=== PATIENT | male | born 1940 | race Caucasian/White ===

== ENCOUNTER 2017-02-25 21:02 | Emergency (ER) | payer OTHER, MEDICARE ==
[~2017-02-25 21:02] MED LIST: DONE5TAB14 PO; NEXI40CA PO; SAW160TA PO; SINE25100 PO
--- NOTE | 2017-02-25 21:12 | PD ---
HPI Chief Complaint: Fall Time Seen by Provider: 21:06 Travel History International Travel<30 days: No Contact w/Intl Traveler<30days: No Traveled to known affect area: No History of Present Illness HPI 76-year-old male presents to the emergency department by EMS transport from home where he reportedly was witnessed to have a non-syncopal slip and fall. Patient is in hospice care. Patient lives at home. Patient has history of parkinsonism Lewy body dementia with behavioral disorder non-Hodgkin's lymphoma that is not being treated and generalized weakness. Patient reportedly was started on a medication today, Ativan 0.5 mg. Patient presents with laceration to the left eyebrow bleeding controlled multiple superficial skin tears and abrasion to the left upper extremity and bilateral knees left greater than right and deformity of the left fourth digit of the left hand at the PIP. Family reportedly requested patient to be transported here to [place]. Hospice nurse reportedly did see the patient at the patient's home and bandages were applied to areas of skin tear and eyebrow laceration. reportedly wanted the patient evaluated in the emergency department because of generalized progressive weakness. [facility] Past Medical History Narrative Medical MALT-lymphoma Lewy body dementia Parkinson's disease chronic anemia, BPH, hyperlipidemia, gouty arthritis, rectal dysfunction, colonoscopy, vasectomy, EGD Autoimmune Disease: No Cancer: Yes (NONHODGKINS LYMPHOMA) Cardiovascular Problems: No High Cholesterol: Yes Chemotherapy: No Diabetes: No Diminished Hearing: No Endocrine: No GERD: Yes (TOMATO BASED FOOD) Genitourinary: Yes (BPH) Hepatitis: No Hiatal Hernia: No Immune Disorder: No Musculoskeletal: No Neurologic: Yes (PARKINSON'S) Parkinson's Disease: Yes Psychiatric: No Reproductive: No Respiratory: No Radiation Therapy: No Sickle Cell Disease: No Thyroid Disease: No Past Surgical History Abdominal Surgery: No AICD: No Cardiac Surgery: No Ear Surgery: No Endocrine Surgery: No Eye Surgery: Yes (PRECIOUS. CATARACT EXTRACT.) Genitourinary Surgery: No Gynecologic Surgery: No Joint Replacement: No Oral Surgery: No Pacemaker: No Thoracic Surgery: No Other Surgery: No Social History Alcohol Use: Yes (2-4 drinks per day) Tobacco Use: No Substance Use: No Allergies-Medications (Allergen,Severity, Reaction): Coded Allergies: No Known Allergies (Verified , 02/25/17) Reported Meds & Prescriptions Reported Meds & Active Scripts Active Reported Donepezil 10 Mg Tab 10 Mg PO HS Lorazepam 1 Mg Tab 1 Mg PO Q6H PRN Lorazepam 0.5 Mg Tab 0.5 Mg PO Q6H PRN Memantine 10 Mg Tab 10 Mg PO BID Myrbetriq (Mirabegron) 25 Mg Tab 25 Mg PO HS Polyethylene Glycol 3350 Powder (Polyethylene Glycol) 17 Gm Pow 17 Gm PO DAILY Senna-Plus (Sennosides-Docusate Sodium) 8.6-50 Mg Tab 2 Tab PO DIRECTED PRN Carbidopa-Levodopa ER 25-100 Mg Tab 1 Tab PO QID Review of Systems ROS Limitations: Poor Historian, Other: () General / Constitutional: No: Fever Cardiovascular: No: Chest Pain or Discomfort Respiratory: No: Shortness of Breath Gastrointestinal: No: Abdominal Pain Musculoskeletal: Positive: Other (deformity left ring finger), No: Pain Neurologic: Positive: Weakness Hematologic/Lymphatic: No: Lymph Node Enlargement Physical Exam Narrative GENERAL: Well-developed well-nourished male in no acute distress no respiratory distress GCS 14 SKIN: Warm and dry. HEAD: Atraumatic. Normocephalic. EYES: Pupils equal and round. No scleral icterus. No injection or drainage. No periorbital rim tenderness or bony step-off 2CM left eyebrow laceration, linear good wound edge approximation and bleeding controlled ENT: No nasal bleeding or discharge. Mucous membranes pink and moist. NECK: Trachea midline. No JVD. CARDIOVASCULAR: Regular rate and rhythm. RESPIRATORY: No accessory muscle use. Clear to auscultation. Breath sounds equal bilaterally. GASTROINTESTINAL: Abdomen soft, non-tender, nondistended. Hepatic and splenic margins not palpable. MUSCULOSKELETAL: Extremities without clubbing, cyanosis, or edema. No obvious deformities except for obvious deformity of the left fourth finger PIP of the left hand digit is otherwise neurovascularly intact brisk capillary refill less than 2 seconds per digit. NEUROLOGICAL: Awake and alert. No obvious cranial nerve deficits. Motor grossly within normal limits. Five out of 5 muscle strength in the arms and legs. Normal speech. PSYCHIATRIC: Appropriate mood and affect; insight and judgment normal. Data Data Last Documented VS Vital Signs Date Time Temp Pulse Resp B/P Pulse Ox O2 Delivery O2 Flow Rate FiO2 02/25/17 23:28 60 14 116/58 96 Room Air 02/25/17 21:14 97.7 Orders Lidocaine Pf 1% Inj (Xylocaine-Mpf 1% In (02/25/17 21:15) Hand, Complete ([id number]) (02/25/17 ) Wound Care (02/25/17 21:06) Complete Blood Count With Diff (02/25/17 21:21) Basic Metabolic Panel (Bmp) (02/25/17 21:21) Magnesium (Mg) (02/25/17 21:21) Urinalysis - C+S If Indicated (02/25/17 21:21) Finger ([id number]) (02/25/17 ) Splint Or Brace Apply/Monitor (02/25/17 22:10) Cath For Specimen (02/25/17 22:22) Donepezil (Aricept) (02/25/17 23:00) Memantine (Namenda) (02/25/17 23:00) Finger Splint (02/25/17 ) Labs Laboratory Tests Test 02/25/17 02/25/17 22:40 23:19 White Blood Count 9.7 TH/MM3 Red Blood Count 4.08 MIL/MM3 Hemoglobin 13.4 GM/DL Hematocrit 39.2 % Mean Corpuscular Volume 96.0 FL Mean Corpuscular Hemoglobin 32.7 PG Mean Corpuscular Hemoglobin 34.1 % Concent Red Cell Distribution Width 13.4 % Platelet Count 184 TH/MM3 Mean Platelet Volume 7.7 FL Neutrophils (%) (Auto) % Lymphocytes (%) (Auto) % Monocytes (%) (Auto) % Eosinophils (%) (Auto) % Basophils (%) (Auto) % Neutrophils # (Auto) TH/MM3 Lymphocytes # (Auto) TH/MM3 Monocytes # (Auto) TH/MM3 Eosinophils # (Auto) TH/MM3 Basophils # (Auto) TH/MM3 CBC Comment AUTO DIFF Differential Total Cells 100 Counted Neutrophils % (Manual) 61 % Lymphocytes % 22 % Monocytes % 15 % Eosinophils % 1 % Basophils % 1 % Neutrophils # (Manual) 5.9 TH/MM3 Differential Comment FINAL DIFF MANUAL Platelet Estimate NORMAL Platelet Morphology Comment CLUMPED Red Cell Morphology Comment NORMAL Sodium Level 137 MEQ/L Potassium Level 4.3 MEQ/L Chloride Level 105 MEQ/L Carbon Dioxide Level 25.5 MEQ/L Anion Gap 7 MEQ/L Blood Urea Nitrogen 20 MG/DL Creatinine 0.92 MG/DL Estimat Glomerular Filtration 80 ML/MIN Rate Random Glucose 84 MG/DL Calcium Level 8.4 MG/DL Magnesium Level 2.5 MG/DL Urine Color YELLOW Urine Turbidity CLEAR Urine pH 6.0 Urine Specific Maiden 1.020 Urine Protein NEG mg/dL Urine Glucose (UA) NEG mg/dL Urine Ketones NEG mg/dL Urine Occult Blood NEG Urine Nitrite NEG Urine Bilirubin NEG Urine Leukocyte Esterase NEG Urine WBC 0-2 /hpf Urine Squamous Epithelial 0-5 /hpf Cells Urine Hyaline Casts 0-2 /lpf Urine Mucus MOD /lpf Microscopic Urinalysis Comment CULT NOT INDICATED MDM Medical Decision Making Medical Screen Exam Complete: Yes Emergency Medical Condition: Yes Medical Record Reviewed: Yes (patient was just seen by his oncologist Dr. Ryan 02/17/17 at which point from an oncology hematology standpoint patient has very little to be offered he does have lymphoma that is asymptomatic and does not warrant therapeutic intervention major issues progressive dementia overall declining health and parkinsonism with recommendation/agreement for hospice.) Interpretation(s) Last Impressions Hand X-Ray 02/25/17 0000 Signed Impressions: Service Date/Time: Saturday, February 25, 2017 21:13 - CONCLUSION: Lateral subluxation of the PIP joint fourth digit. Bhargav Tim MD Finger X-Ray 02/25/17 0000 Signed Impressions: Service Date/Time: Saturday, February 25, 2017 22:18 - CONCLUSION: The fourth digit has been relocated to its anatomic position. Bhargav Tim MD Vital Signs Date Time Temp Pulse Resp B/P Pulse Ox O2 Delivery O2 Flow Rate FiO2 02/25/17 21:18 98 Room Air 02/25/17 21:14 97.7 64 16 116/71 98 Differential Diagnosis Mechanical fall, medication sensitivity, generalized weakness, electrolyte disturbance, anemia, arrhythmia, UTI, ACS, CHI, ICH, laceration, contusion, skin tear, digit dislocation/fracture Narrative Course At 2134 patient's Mrs. Davis has arrived reports patient had a witnessed fall as she was assisting him to the bathroom. Patient did start a new medication today lorazepam 0.5 mg and the dose was taken at 1 PM. Patient did not have loss of consciousness. Patient did hit his head on the carpet. Patient is currently being treated for parkinsonism with progressive Lewy body dementia and multiple lymphoma. is aware that at this point time and imaging study has been ordered of his hand as has CBC to evaluate for anemia and a basic chemistry to evaluate electrolytes and renal function as well as a urinalysis. Patient's reports he just completed a course of antibiotic for urinary tract infection. is agreeable to have the patient undergo basic blood work; she does not want a CT imaging of the brain or neck, does not want an EKG performed, does not want cardiac enzymes evaluated, but does want basic labs (CBC, BMP, UA) collected and resulted. After informed consent from patient's spouse is his health care surrogate and power of insurance attorney the left index finger of the left hand was prepped with Betadine 1% lidocaine plain was administered as a digital block and reduction of PIP dislocation performed. Postreduction capillary refill remains brisk and less than 2 seconds patient is able to demonstrate flexion and extension of the entire digit sensory exam intact. Imaging studies ordered @ 22:14 bulldozer press operator at the bedside, Adam -- recommending HOSPICE center care; deciding that she would prefer the patient go directly into [facility] [place] tonight and avoid observation admission to the hospital tonight if possible. Post reduction film reveals no obvious fracture dislocation has been reduced and nonspecific radiopaque foreign body remains unchanged age-indeterminate no wound associated with the identified foreign body. @ 00:30 Adam SEGURAdie assembler has returned lab values grossly wnl or unchanged from comparison labs; left 4th finger dislocation reduced and splinted eyebrow laceration repaired and wishes patient to be admitted to [facility] instead of OBS admission to [facility] facility. Patient is stable for [facility] [place] admission and bed is available for the patient therefore will proceed with 's request for the patient as his health care surrogate and power of insurance attorney. Procedures Procedure Narrative Finger dislocation reduction-- After informed consent from patient's spouse who is his health care surrogate and power of insurance attorney; the left index finger of the left hand was prepped with Betadine,3 ML 1% lidocaine plain was administered as a digital block; after satisfactory local anesthesia obtained reduction of PIP dislocation performed using traction countertraction. Postreduction capillary refill remains brisk and less than 2 seconds, patient is able to demonstrate flexion and extension of the entire digit at the MCP PIP and DIP; sensory exam intact. Imaging studies ordered postreduction. Splint applied. Diagnosis Primary Impression: Generalized weakness Additional Impressions: Laceration of eyebrow, left Qualified Code: S01.112A - Laceration of eyebrow, left, initial encounter Dislocation of finger, interphalangeal joint, left, closed Qualified Code: S63.279A - Dislocation of finger, interphalangeal joint, left , closed, initial encounter Disposition: 51 HOSPICE/MED FACILITY Condition: Stable ([facility]; Dr Eva Gonzáles) Randi Harmon MD Feb 25, 2017 21:12
[2017-02-25 21:14] VITALS: BP 116/71; PULSE 64; RESP 16; TEMP 97.7; O2SAT 98
[2017-02-25] MEDS ORDERED: LORA1TAB12 PO (21:14)
[2017-02-25] MEDS ORDERED: CARB25TA16 PO (21:14)
[2017-02-25] MEDS ORDERED: SENN1TAB PO (21:14)
[2017-02-25] MEDS ORDERED: MEMA1TAB2 PO (21:14)
[2017-02-25] MEDS ORDERED: MIRA25TA PO (21:14)
[2017-02-25] MEDS ORDERED: POLY17S PO (21:14)
[2017-02-25] MEDS ORDERED: LORA-373 PO (21:14)
[2017-02-25] MEDS ORDERED: LIDOCAINE HCL 1% PF 30 ML VIAL INFIL ONE (21:15)
--- NOTE | 2017-02-25 21:30 | RADHPO ---
EXAM DATE/TIME: 02/25/2017 21:13 [facility] COMPARISON: No previous studies available for comparison. INDICATIONS : Left hand pain post fall. Fourth digit deformity. MEDICAL HISTORY : Unobtainable. SURGICAL HISTORY : Unobtainable. ENCOUNTER: Initial ACUITY: 1 day PAIN SCORE: Non-responsive. LOCATION: Left hand. Fourth digit. FINDINGS: Three view examination of the left hand demonstrates lateral subluxation of the PIP joint of the four th digit. Scattered mild degenerative changes. No fracture seen. Bony mineralization is normal. CONCLUSION: Lateral subluxation of the PIP joint fourth digit. Bhargav Tim MD on February 25, 2017 at 21:27 Board Certified Radiologist. This report was verified electronically.
--- NOTE | 2017-02-25 22:27 | PD ---
Physical Exam Time Seen by Provider: 22:10 Narrative I was asked by Dr. Harmon to repair laceration on this patient. Please see her note for further details. Data Data Last Documented VS Vital Signs Date Time Temp Pulse Resp B/P Pulse Ox O2 Delivery O2 Flow Rate FiO2 02/25/17 21:18 98 Room Air 02/25/17 21:14 97.7 64 16 116/71 Orders Lidocaine Pf 1% Inj (Xylocaine-Mpf 1% In (02/25/17 21:15) Hand, Complete ([id number]) (02/25/17 ) Wound Care (02/25/17 21:06) Complete Blood Count With Diff (02/25/17 21:21) Basic Metabolic Panel (Bmp) (02/25/17 21:21) Magnesium (Mg) (02/25/17 21:21) Urinalysis - C+S If Indicated (02/25/17 21:21) Finger ([id number]) (02/25/17 ) Splint Or Brace Apply/Monitor (02/25/17 22:10) Cath For Specimen (02/25/17 22:22) MDM Medical Record Reviewed: Yes Supervised Visit with DAMON: Yes Procedures Procedure Narrative LACERATION LOCATION: Left eyebrow LENGTH: 2 cm NUMBER OF STITCHES/WILI: 3 simple interrupted REPAIR: The area of the laceration was prepped with Betadine and sterilely draped. The laceration was infiltrated with 1% lidocaine with epinephrine. The wound was copiously irrigated and explored without evidence of foreign body , tendon injury or neurovascular injury. The wound was closed using 6-0 Prolene. This was a single layer repair. A sterile dressing was applied. The patient was advised to keep the dressing clean and dry. Patient tolerated the procedure well. Nora Ruiz Feb 25, 2017 22:27
[2017-02-25] MEDS ORDERED: DONE10TA7 PO (22:30)
--- NOTE | 2017-02-25 22:39 | RADHPO ---
EXAM DATE/TIME: 02/25/2017 22:18 [facility] COMPARISON: HAND LEFT COMPLETE ([id number]), February 25, 2017, 21:13. INDICATIONS : Post reduction fourth digit. MEDICAL HISTORY : Dementia. Parkinsons. SURGICAL HISTORY : None. ENCOUNTER: Subsequent ACUITY: 1 day PAIN SCORE: Non-responsive. LOCATION: Left hand, fourth digit. FINDINGS: Examination of the fourth digit of the left hand demonstrates no evidence of fracture or dislocation. Punctate radiopaque foreign body is seen adjacent to the distal phalanx. The soft tissues are intac t. CONCLUSION: The fourth digit has been relocated to its anatomic position. Bhargav Tim MD on February 25, 2017 at 22:36 Board Certified Radiologist. This report was verified electronically.
[2017-02-25] MEDS ORDERED: MEMANTINE HCL 10 MG TAB PO ONE (23:00)
[2017-02-25] MEDS ORDERED: DONEPEZIL HCL 5 MG TAB PO ONE (23:00)
[2017-02-25 23:06] LABS: HEMATOCRIT 39.2 % (39.0-51.0); MEAN CORPUSCULAR HEMOGLOBIN 32.7 PG (27.0-34.0); MEAN CORPUSCULAR HGB CONC 34.1 % (32.0-36.0); PLATELET COUNT 184 TH/MM3 (150-450); RED BLOOD COUNT 4.08 MIL/MM3 (4.50-5.90); RED CELL DISTRIBUTION WIDTH 13.4 % (11.6-17.2); WHITE BLOOD COUNT 9.7 TH/MM3 (4.0-11.0)
[2017-02-25 23:16] LABS: HEMO FLAGS AUTO DIFF
[2017-02-25 23:25] LABS: POTASSIUM 4.3 MEQ/L (3.5-5.1)
[2017-02-25 23:26] LABS: BLOOD, URINE NEG (NEG); GLUCOSE,URINE NEG (NEG); KETONE, URINE NEG (NEG); NITRITE,URINE NEG (NEG)
[2017-02-25 23:28] VITALS: BP 116/58; PULSE 60; RESP 14; O2SAT 96
[2017-02-25 23:28] LABS: BICARBONATE 25.5 MEQ/L (21.0-32.0); MAGNESIUM 2.5 MG/DL (1.5-2.5)
[2017-02-25 23:30] LABS: URINE COLOR YELLOW (YELLW/STRAW)
[2017-02-25 23:31] LABS: MUCUS URINE MOD /lpf (OCC); SQUAMOUS EPITHELIAL CELL URINE 0-5 /hpf (0-5); WBC, URINE 0-2 /hpf (0-5)
[2017-02-25 23:32] LABS: HYALINE CAST, URINE 0-2 /lpf (RARE)
[2017-02-25 23:33] LABS: COMMENT (UR) CULT NOT INDICATED; CULTURE IF INDICATED CULT NOT INDICATED
[2017-02-25 23:40] LABS: BASOPHILS 1 % (0-2); EOSINOPHILS 1 % (0-4); NEUTROPHIL # MANUAL DIFF 5.9 TH/MM3 (1.8-7.7); POLYS (SEG NEUTROPHILS) 61 % (16-70); WBC DIFF SAMPLE 100
[2017-02-25 23:42] LABS: PLATELET ESTIMATE SMEAR NORMAL (NORMAL); PLATELET MORPHOLOGY CLUMPED (NORMAL); SCAN/DIFF FINAL DIFF MANUAL
[2017-02-26 01:00] VITALS: BP 116/58; TEMP 97.7
== END 2017-02-26 02:00 | disposition hospice, inpatient (51) ==
LOC: PHED 21:02
DX: S01.112A Laceration without foreign body of left eyelid and periocular area, initial encounter (principal); S63.279A Dislocation of unspecified interphalangeal joint of unspecified finger, initial encounter; G20 Parkinson's disease; G31.83 Neurocognitive disorder with Lewy bodies; R53.1 Weakness; C85.90 Non-Hodgkin lymphoma, unspecified, unspecified site; E78.00 Pure hypercholesterolemia, unspecified; N40.0 Benign prostatic hyperplasia without lower urinary tract symptoms; D64.9 Anemia, unspecified; E78.5 Hyperlipidemia, unspecified; W18.30XA Fall on same level, unspecified, initial encounter; Y93.01 Activity, walking, marching and hiking; Y92.002 Bathroom of unspecified non-institutional (private) residence as the place of occurrence of the external cause; Y99.8 Other external cause status
CPT/HCPCS: 12011; 26770; 73130; 73140; 80048; 81001; 83735; 85007; 85027